=== PATIENT | female | born 1970 | race African-American/Black ===

== ENCOUNTER 2021-03-10 12:40 | Emergency (ER) | payer OTHER, BC ==
[2021-03-10 12:49] VITALS: TEMP 98; BMI 33.9
[2021-03-10 13:44] LABS: HCG,QUALITATIVE URINE Negative
[2021-03-10 16:13] VITALS: BP 152/96; PULSE 109
== END 2021-03-10 16:30 | disposition home or self-care (01) ==
LOC: FER 12:40
DX: S13.4XXA Sprain of ligaments of cervical spine, initial encounter (principal)
CPT/HCPCS: 72070-TC-FY; 72125-TC; 72131-TC; 81003; 84703; 99284-25

== ENCOUNTER 2021-05-04 10:40 | Emergency (ER) | payer BC, OTHER ==
[2021-05-04 10:46] VITALS: TEMP 99.3; BMI 32.9
[2021-05-04] MEDS ORDERED: SODIUM CHLORIDE 1,000 ML IV STA ×2 (11:00→12:31)
[2021-05-04 11:18] LABS: HCG,QUALITATIVE URINE Negative
[2021-05-04 11:24] LABS: BASO % 1.3 % (0-2.0); HEMATOCRIT 41.5 % (32.4-45.2); HEMOGLOBIN 13.6 GM/dl (10.7-15.3); LYMPH % 20.5 % (8-40); MCHC 32.7 g/dl (32.0-36.0); MEAN CELL VOLUME 85.7 fl (80-96); MEAN PLT VOLUME 8.9 fl (7.5-11.1); MONO % 12.3 % (3.8-10.2); NEUT % 65.9 % (42.8-82.8); PLATELET COUNT 204 10^3/uL (134-434); RBC 4.85 M/mm3 (3.60-5.2); RDW 12.9 % (11.6-15.6); WHITE BLOOD COUNT 5.5 K/mm3 (4.0-10.8)
[2021-05-04 11:35] LABS: ALBUMIN 4.2 g/dl (3.4-5.0); BILIRUBIN,TOTAL 0.7 mg/dl (0.2-1); TOT PROT 8.4 g/dl (6.4-8.2)
[2021-05-04 13:33] VITALS: BP 134/90; PULSE 87
[2021-05-05 14:07] LABS: SARS-CoV-2 NAA Detected (Not Detected)
== END 2021-05-04 13:35 | disposition home or self-care (01) ==
LOC: FER 10:40
PROC: 3E0337Z Introduction of Electrolytic and Water Balance Substance into Peripheral Vein, Percutaneous Approach (ICD-10-PCS; principal; 2021-05-04)
PROC: 3E0337Z Introduction of Electrolytic and Water Balance Substance into Peripheral Vein, Percutaneous Approach (ICD-10-PCS; 2021-05-04)
DX: R68.83 Chills (without fever) (principal); R35.0 Frequency of micturition; R55 Syncope and collapse
CPT/HCPCS: 36415; 80053; 81003; 82550; 84484; 84703; 85025; 87086; 93005; 99284-25; C9803; U0003; U0005

== ENCOUNTER 2022-02-16 14:30 | Emergency (ER) | payer SELFPAY ==
[2022-02-16 15:02] VITALS: BP 145/83; PULSE 95; TEMP 98.6; BMI 32.5
== END 2022-02-16 15:10 | disposition home or self-care (01) ==
LOC: FER 14:30
DX: F07.81 Postconcussional syndrome (principal)
CPT/HCPCS: 99281-25

== ENCOUNTER 2023-10-11 00:19 | Emergency (ER) | payer BC, OTHER ==
[2023-10-11 00:38] VITALS: BP 137/93; PULSE 96; RESP 16; TEMP 98.5; BMI 32.3
[2023-10-11] MEDS ORDERED: IBUPROFEN 600 MG TABLET (FP) PO ONE ×2 (00:49→00:52)
== END 2023-10-11 00:58 | disposition home or self-care (01) ==
LOC: FER 00:19
DX: S80.02XA Contusion of left knee, initial encounter (principal); W01.198A Fall on same level from slipping, tripping and stumbling with subsequent striking against other object, initial encounter; Y92.9 Unspecified place or not applicable
CPT/HCPCS: 99283-25